=== PATIENT | male | born 1940 | race Caucasian/White ===

== ENCOUNTER → 2017-07-12 | Outpatient (CLI) | payer MEDICARE ==
[~2017-07-12] MED LIST: ADULT LOW DOSE81 MG PO; AUGMENTIN 875-1 EACH PO; AUGMENTIN1 TA2 PO; CLINDAMYCIN HC300 MG PO; DOXYCYCLINE HY100 MG PO; EPIPEN1 MG/ML MR; MULTI VITAMINS1 TA1 PO; MULTIVITAMIN1 TAB PO; NORCO 325 MG-101 TAB PO; PREDNISONE 20MG20 MG PO
[2017-07-12 17:09] LABS: HEMOGLOBIN 13.3 g/dL (14.1-18.0); LYMPH # 2.5 K/mm3 (0.7-4.5); LYMPH % 31.7 % (10-50)
[2017-07-12 17:36] LABS: BUN 20 mg/dL (7-18)
[2017-07-12 17:40] LABS: GFR (ESTIMATED) 54 ML/MIN (>60)
[2017-07-14 08:39] LABS: Vitamin D, 25-Hydroxy 42.5 ng/mL (30.0-100.0)
[2017-07-14 09:41] LABS: Folate (Folic Acid) >20.0 ng/mL (>3.0); Vitamin B12 919 pg/mL (211-946)
[2017-07-15 06:44] LABS: PSA, Free 0.55 ng/mL; Prostate Specific Ag 2.6 ng/mL (0.0-4.0)
== END ==
LOC: LAB 16:52
PROVIDERS: Physician Assistant
DX: J40 Bronchitis, not specified as acute or chronic (principal); I25.10 Atherosclerotic heart disease of native coronary artery without angina pectoris; Z00.00 Encounter for general adult medical examination without abnormal findings; Z79.899 Other long term (current) drug therapy

== ENCOUNTER → 2017-09-07 | Outpatient (CLI) | payer MEDICARE ==
--- NOTE | 2017-09-08 09:32 | RADIOLOGY REPORT PS360 ---
CT CHEST W/O CONTRAST HISTORY: PERSISTANT PNEUMONIA . 2 months 77-year-old Patient Age: 77 years: Male Ordering Physician: Etienne Trivedi MD TECHNIQUE: Helical CT scanning performed the chest with sagittal and coronal reconstructions on CT workstation. COMPARISON :PA and lateral chest 03/10/2015 and June 2015. No recent chest films available at this facility. Recent comparison chest films or CT studies would be helpful to better evaluate for recent changes FINDINGS RIGHT LUNG Small right pleural effusion most evident towards the posterior right lung base... This pleural effusion measures~3.5 thickness at the posterior sulcus where it is most evident. Also note rim of likely partially loculated pleural fluid anteriorly overlying anterior/inferior aspect of the RML. These features most likely reflect sequela and residual of resolving pneumonia right lung base.. There is some mild scarring atelectasis and persistent airway thickening at the RML with scarring atelectasis and question some scant resolving inflammatory changes persisting here as well. Mild postinflammatory bronchiectatic changes most evident inferior right middle lobe. Axial image 47. Less evident scant residual postinflammatory changes also seen at posterior/& lateral aspect at RLL inferiorly towards right lung base. But features here RLL very minimal and less evident. I see no prominent area of consolidation or persistent pneumonia; and these features described above most likely reflect residual from resolving RML pneumonia and to lesser degree RLL pneumonia.. There are some underlying emphysematous changes evident. Small 13 mm bleb is seen at the RLL just below the major fissure, axial image 40. LEFT LUNG: appears clear. No pneumonia. No pleural effusions. Note Small bleb left lung base left lower lobe. 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 This area posterior bulging of aorta measures 4.5 cm diameter & extends for over 5 cm length at lower thoracic aorta, ( axial image 57 sagittal image 57). There is also mild dilatation asscending aorta and aortic root which measures ~4 cm maximum diameter. Previous CABG with graft markers evident in this region. The aortic arch calcified with more normal caliber 3 cm. And initial descending aorta then dilates slightly up to 3.5 cm. Before encountering the more pronounced area aneurysmal dilatation of the lowermost abdominal aorta . No significant mediastinal nor hilar adenopathy. Scattered small nodes mediastinum none measuring over 1.5 cm x 1 cm. Heart mildly enlarged with coronary artery calcification and CABG again noted. Upper abdomen. No significant findings.. Adrenals unremarkable T-spine. 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 May want to consider checking serum electrophoresis given the somewhat lucent appearance of bone at multiple vertebral levels but overall I favor hemangiomas .. Arthritic changes both shoulders noted. Old appearing healing right ninth and eighth rib fractures. Posterior lateral chest IMPRESSION 1. Small right pleural effusion, most evident posteriorly right lower chest. Also minimal likely partially loculated fluid along anterior inferior margin of RML What appear to be mainly residual postinflammatory changes of resolving pneumonia-most evident at the RML and less evident at RLL. Mild postinflammatory bronchiectatic changes, mild airway thickening & scarring most evident anterior RML,.. RLL with only minimal density overlying the pleural effusion which likely reflect residual compression atelectasis and scarring. No prominent consolidation or definitive area focal infiltrate. I favor these above changes are reflection of of resolving pneumonia.Any outside recent chest or CT study may be of benefit for comparison to evaluate for changes. 2. Healing posterior lateral eighth & ninth rib fractures are seen in this same region.-Requires correlation.. . 3... Aneurysmal dilatation thoracic aorta incidentally noted.: . With 4.5 cm diameter segment of focal dilatation at lower thoracic aorta . And 4 cm diameter dilated aortic root. 4.. Previous CABG
== END ==
LOC: RAD 10:06
DX: J18.9 Pneumonia, unspecified organism (principal)

== ENCOUNTER → 2017-09-10 | Outpatient (CLI) | payer MEDICARE ==
--- NOTE | 2017-09-10 13:47 | RADIOLOGY REPORT PS360 ---
CHEST(2 VIEWS-NOT PORTABLE) HISTORY: PERSISTENT COUGH FOR 3 WKS,PNEUMONIA ORDERING PHYSICIAN: ABBEY MATOS MD PATIENT AGE: 77 years COMPARISON: 08/20/2017 FINDINGS: Status post prior CABG normal heart size.. There remains a small right pleural effusion with residual atelectasis or infiltrate in the right lower and right middle lobe overall not significant change. Left lung remains clear. There are old right seventh and eighth rib fractures.. No acute bony abnormalities. IMPRESSION: Overall no change small right effusion with right lower lobe and right middle lobe atelectasis or infiltrate.
== END ==
LOC: RT 09:50
DX: R05 Cough (principal); J18.9 Pneumonia, unspecified organism